=== PATIENT | male | born 1960 | race Caucasian/White ===

== ENCOUNTER 2020-11-18 00:08 | Emergency (ER) | payer SELFPAY ==
[~2020-11-18] VITALS: Ht 180.3 cm; Wt 129.3 kg
[~2020-11-18 00:08] MED LIST: ASPI-1155 PO; LISI20TA30
[2020-11-18 00:12] VITALS: BP_SYST 132
--- NOTE | 2020-11-18 00:12 | NUR ---
PT TO BED 1, GOWNED AND ATTACHED TO INTERMEDIATE ACCOUNTANT.
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
--- NOTE | 2020-11-18 00:30 | NUR ---
DR. FOLEY AT BEDSIDE TO ASSESS.
--- NOTE | 2020-11-18 00:40 | NUR ---
Patient is hard stick vein, dehydrated, IV cannula tried to insert [address] Bill ordered to give Morphine 4mg IV once IM and Ativan 1mg IM once, carried out.
[2020-11-18] MEDS ORDERED: LORazepam 2 MG/ML VIAL ONE (00:41)
[2020-11-18] MEDS ORDERED: MORPHINE 4 MG INJ. 4 MG/ML VIAL ONE (00:42)
[2020-11-18] MEDS ORDERED: ONDANSETRON HCL 4 MG/2 ML VIAL ONE (00:54)
--- NOTE | 2020-11-18 00:55 | NUR ---
# 20 gauge angiocath placed to right wrist. Use of asceptic technique. Opsite placed over site. Blood return noted. Flushed with 10 cc of normal saline. No evidence of infiltration noted. Patient tolerated well.
[2020-11-18] MEDS ORDERED: MORPHINE 2 MG/ML INJ. SYRINGE ONE (00:58)
[2020-11-18] MEDS ORDERED: MORPHINE 4 MG INJ. 4 MG/ML VIAL IM ONE (01:00)
[2020-11-18] MEDS ORDERED: MORPHINE 2 MG/ML INJ. SYRINGE IVP ONE (01:00)
[2020-11-18] MEDS ORDERED: NACL 0.9% 1,000 ML IV ONE ×2 (01:00→06:30)
[2020-11-18] MEDS ORDERED: LORazepam 2 MG/ML VIAL IM ONE (01:00)
[2020-11-18] MEDS ORDERED: ONDANSETRON HCL 4 MG/2 ML VIAL IVP ONE (01:15)
[2020-11-18] MEDS ORDERED: LORazepam 2 MG/ML VIAL IVP ONE (01:15)
[2020-11-18] MEDS ORDERED: KETOROLAC TROMETHAMINE 30 MG VIAL IVP ONE (01:15)
[2020-11-18 01:18] LABS: BASOPHILS % (AUTO) 0.5 % (0.0-2.0); EOSINOPHILS # (AUTO) 0.1 K/uL (0.0-0.4); EOSINOPHILS % (AUTO) 1.2 % (0.0-4.0); HEMATOCRIT 47.1 % (36-54); HEMOGLOBIN 16.3 g/dL (14.0-18.0); LYMPHOCYTES % (AUTO) 11.3 % (20.5-51.5); MEAN CORPUSCULAR HEMOGLOBIN 34 pg (27-31); MEAN CORPUSCULAR HGB CONC 35 % (32-36); MEAN CORPUSCULAR VOLUME 97 fL (79.0-98.0); MONOCYTES # (AUTO) 0.6 K/uL (0.0-1.0); MONOCYTES % (AUTO) 6.8 % (1.7-9.3); NEUTROPHILS # (AUTO) 6.9 K/uL (1.8-7.7); NEUTROPHILS % (AUTO) 80.2 % (40.0-70.0); PLATELET COUNT (AUTO) 319 K/uL (130-430); RED BLOOD CELL COUNT(AUTO) 4.84 MIL/uL (4.2-6.2); RED CELL DISTRIBUTION WIDTH 13.1 % (9.0-15.0); WHITE BLOOD COUNT (AUTO) 8.6 K/uL (4.8-10.8)
[2020-11-18 01:28] LABS: CALCIUM 9.3 mg/dL (8.4-11.0); CREATININE 1.27 mg/dL (0.55-1.30); POTASSIUM 4.3 mmol/L (3.5-5.1)
[2020-11-18 01:34] LABS: TOTAL BILIRUBIN 0.8 mg/dL (0.0-1.0)
--- NOTE | 2020-11-18 02:50 | NUR ---
Apparently nauseated and vomiting noted, Dr. Bill made aware, orders carried out
[2020-11-18] MEDS ORDERED: PANTOPRAZOLE SODIUM 40 MG/VIAL (PROTONIX) IVP ONE (03:00)
[2020-11-18] MEDS ORDERED: METOCLOPRAMIDE HCL 10 MG/2 ML VIAL IVP ONE (03:00)
[2020-11-18] MEDS ORDERED: METOCLOPRAMIDE HCL 10 MG/2 ML VIAL ONE (03:06)
[2020-11-18] MEDS ORDERED: PANTOPRAZOLE SODIUM 40 MG/VIAL (PROTONIX) ONE (03:06)
--- NOTE | 2020-11-18 03:10 | NUR ---
Re-assesed by Dr. Bill,
[2020-11-18] MEDS ORDERED: NACL 0.9% 500 ML IV ONE (03:30)
[2020-11-18] MEDS ORDERED: PRED20TA PO (04:18)
[2020-11-18] MEDS ORDERED: CYCL10TA24 PO (04:18)
[2020-11-18] MEDS ORDERED: ACET1TAB23 PO (04:18)
--- NOTE | 2020-11-18 04:23 | NUR ---
For discharge, apparently patient claimed that no family or friend to pick him up until 6am, refused to take a taxi.
[2020-11-18] MEDS ORDERED: PROCHLORPERAZINE EDISYLATE 10 MG/2 ML VIAL ONE (05:24)
--- NOTE | 2020-11-18 05:25 | NUR ---
Apparently nauseated, Compazine 5mg IV stat as ordered given, health teaching provided and verbalized understanding
[2020-11-18] MEDS ORDERED: PROCHLORPERAZINE EDISYLATE 10 MG/2 ML VIAL IVP ONE (05:30)
--- NOTE | 2020-11-18 06:11 | NUR ---
Refused to discharge, according to him he wasn't able to urinate since 9am yesterday, Dr. Bourgeois made aware, ordered to give Iv fluid
--- NOTE | 2020-11-18 07:10 | NUR ---
Endorsed to day shift AMAIRANI Juan in stable condition for continuity of care.
--- NOTE | 2020-11-18 07:12 | NUR ---
report received from Dhiraj BALES. [facility]
--- NOTE | 2020-11-18 07:15 | NUR ---
ua collected and sent to the lab
[2020-11-18 07:43] LABS: BILIRUBIN,URINE NEGATIVE (NEGATIVE); BLOOD, URINE NEGATIVE (NEGATIVE); COLOR,URINE YELLOW (YELLOW); GLUCOSE,URINE NEGATIVE (NEGATIVE); KETONES,URINE 2+ (NEGATIVE); LEUKOCYTE ESTERASE ,URINE NEGATIVE (NEGATIVE); NITRITE, URINE NEGATIVE (NEGATIVE); PH,URINE 5.5 (5.0-8.0); PROTEIN URINE NEGATIVE (NEGATIVE); UROBILINOGEN,URINE 0.2 (0.2-1.0)
[2020-11-18 07:53] LABS: CLARITY/URINE HAZY (CLEAR)
[2020-11-18 07:58] LABS: BACTERIA,URINE RARE /HPF (None Seen); RBC,URINE NONE SEEN /HPF (0-3); URINE AMORPHOUS URATE 2+ /HPF (None Seen); WBC,URINE 0-3 /HPF (0-3)
[2020-11-18 09:04] VITALS: BP_SYST 95
--- NOTE | 2020-11-18 09:05 | NUR ---
Patient given written and verbal discharge instructions and verbalizes understanding. ER MD discussed with patient the results and treatment provided. Patient in stable condition. ID arm band removed. IV catheter removed intact and dressing applied, no active bleeding. Rx of tylenol 3, flexeril, and prednisone given. Patient educated on pain management and to follow up with PMD. Pain Scale 0/10. Opportunity for questions provided and answered. Medication side effect fact sheet provided.
== END 2020-11-18 09:05 | disposition home or self-care (01) ==
LOC: SED 00:08
DX: T67.5XXA Heat exhaustion, unspecified, initial encounter (principal); R07.89 Other chest pain; E86.0 Dehydration; I10 Essential (primary) hypertension; Z79.899 Other long term (current) drug therapy; X30.XXXA Exposure to excessive natural heat, initial encounter; Y93.89 Activity, other specified; Y92.89 Other specified places as the place of occurrence of the external cause; Y99.8 Other external cause status
CPT/HCPCS: 36415; 71045; 80053; 81000; 83690; 83880; 84484; 85025; 93005; 96361; 96372; 96374; 96375; 99285; C9113; J0780; J1885; J2060; J2270 ×2; J2405; J2765; J7030

== ENCOUNTER 2021-07-03 20:23 | Emergency (ER) | payer MEDICAID ==
[~2021-07-03] VITALS: Ht 177.8 cm; Wt 142.9 kg
[~2021-07-03 20:23] MED LIST changes: +CYCL10TA24 PO; +PRED20TA PO
[2021-07-03 20:34] VITALS: BP_SYST 118
--- NOTE | 2021-07-03 20:49 | NUR ---
Patient to ER bed 2 to gown for evaluation. Side rails up. Report given to RACHELLE BALES
--- NOTE | 2021-07-03 21:00 | NUR ---
Patient is awake and alert. C/O LEFT PINKY LAC, BLEEDING CONTROLLED WHILE WORKING WITH STEEL PIPE. PAIN 7/10. NO OTHER COMPLAINTS AT THIS TIME. AT BEDSIDE. VSS. WILL CONTINUE TO MONITOR.
--- NOTE | 2021-07-03 21:05 | NUR ---
ER MD GUTIÉRREZ AT BEDSIDE EXAMINING PATIENT.
--- NOTE | 2021-07-03 22:10 | NUR ---
ER MD CAPELLAN AT BEDSIDE EXAMINING PATIENT.
[2021-07-03] MEDS: DIPH-TET-PERTUS Vaccine 0.5 ML VIAL (ADACEL) I.M. ONE (22:54)
--- NOTE | 2021-07-03 23:30 | NUR ---
Patient waiting for MD to suture laceration. VSS. Will continue to monitor.
[2021-07-04] MEDS: LIDOCAINE 1% 10 MG/ML, 20 ML MDV INJ ONE (00:23)
[2021-07-04 00:59] VITALS: BP_SYST 125
--- NOTE | 2021-07-04 00:59 | NUR ---
Patient given written and verbal discharge instructions and verbalizes understanding. ER MD CAPELLAN discussed with patient the results and treatment provided. Patient in stable condition. ID arm band removed. Patient educated on pain management and to follow up with PMD. Pain Scale 0/10. Opportunity for questions provided and answered. Medication side effect fact sheet provided.
== END 2021-07-04 00:59 | disposition home or self-care (01) ==
LOC: SED 20:23
DX: S61.317A Laceration without foreign body of left little finger with damage to nail, initial encounter (principal); I10 Essential (primary) hypertension; W27.8XXA Contact with other nonpowered hand tool, initial encounter; Y93.89 Activity, other specified; Y92.89 Other specified places as the place of occurrence of the external cause; Y99.8 Other external cause status
CPT/HCPCS: 12001; 90471; 90715; 99283; J2001

== ENCOUNTER → 2021-12-07 | Emergency (ER) | payer MEDICAID ==
[~2021-12-07] VITALS: Ht 175.3 cm; Wt 145.1 kg
[~2021-12-07] MED LIST changes: +DICYCLOMINE HCL 10 MG/5 ML SOLUTION ONE; +DIPHENHYDRAMINE INJ 50 MG/ML VIAL IVP ONE; +MAG HYDROX/AL HYDROX/SIMETH 30 ML, DICYCLOMINE HCL 20 MG, LIDOCAINE VISCOUS 2% 15ML (PO... PO ONE; +MAG-AL HYDROX/SIMETH 30 ML UDC ONE; +MORPHINE SULFATE 10 MG/ML VIAL IVP ONE; +PROCHLORPERAZINE EDISYLATE 10 MG/2 ML VIAL IVP ONE; +iohexoL 350 mgI/mL, 100 ML INFUS..BTL IV ONE
[2021-12-07 11:00] VITALS: BP_SYST 165
[2021-12-07 11:42] LABS: HEMATOCRIT 45.3 % (36-54); MEAN CORPUSCULAR VOLUME 94 fL (79.0-98.0); PLATELET COUNT (AUTO) 279 K/uL (130-430); RED BLOOD CELL COUNT(AUTO) 4.81 MIL/uL (4.2-6.2); RED CELL DISTRIBUTION WIDTH 13.3 % (9.0-15.0); WHITE BLOOD COUNT (AUTO) 6.9 K/uL (4.8-10.8)
--- NOTE | 2021-12-07 11:45 | NUR ---
RECEIVED PT FROM AMAIRANI ABDULLAHI. PT IS AAOX4. BIBS WITH C/O BACK PAIN. ON R/A. STATES HE HAS NAUSEA. ABDOMEN ROUND, NONTENDER, MILD DISTENTION. DENIES DIARHEA AND CONSTIPATION. IV CATH STARTED TO LFA 20. SKIN WARM, DISTAL PULSES NORMAL. SIDERAILS UP X2.
--- NOTE | 2021-12-07 11:50 | NUR ---
GI COCKTAIL GIVEN. ASPITRATIONS PRECAUTIONS.
--- NOTE | 2021-12-07 12:00 | NUR ---
DR. LOPEZ AT BEDSIDE.
[2021-12-07 12:20] LABS: ANION GAP 11 (5-15); CHLORIDE 101 mmol/L (98-107); CREATININE 1.19 mg/dL (0.55-1.30); GLUCOSE 182 mg/dL (70-99); POTASSIUM 4.1 mmol/L (3.5-5.1); UREA NITROGEN, BLOOD 14 mg/dL (8-21)
[2021-12-07 12:28] LABS: ALANINE AMINOTRANSFERASE 43 U/L (12-78); ALBUMIN 3.6 g/dL (3.4-4.8); ASPARTATE AMINOTRANSFERASE 22 U/L (10-37); TOTAL BILIRUBIN 0.4 mg/dL (0.0-1.0)
--- NOTE | 2021-12-07 12:52 | NUR ---
CXR, URINE, CT CONTRAST CONSENT GIVEN. PT MEDICATED TO PREVENT REACTION TO CONTRAST.
[2021-12-07 12:58] LABS: ALCOHOL, BLOOD < 3 mg/dL (<10); GFR AFRICAN AMERICAN 80 mL/min (>90)
[2021-12-07 13:32] LABS: BARBITURATE, URINE NEGATIVE (NEG <=200); BENZODIAZEPINE, URINE NEGATIVE (NEG <=150); CANNABINOID, URINE POSITIVE (NEG <=50); COCAINE, URINE NEGATIVE (NEG <=150); METHAMPHETAMINES SCREEN,URINE NEGATIVE (NEG <=500); OPIATE, URINE POSITIVE (NEG <=100); PHENCYCLIDINE SCREEN,URINE NEGATIVE (NEG <=25); UR TRICYCLIC ANTIDEPRESSANTS NEGATIVE (NEG <=300); URINE AMPHETAMINE NEGATIVE (NEG <=500); URINE METHADONE NEGATIVE (NEG <=200); URINE OXYCODONE SCREEN NEGATIVE (NEG <=100); URINE PROPOXYPHENE SCREEN NEGATIVE (NEG <=300)
[2021-12-07 15:27] VITALS: BP_SYST 149
[2021-12-07 17:01] LABS: MEAN CORPUSCULAR HEMOGLOBIN 34 pg (27-31); MEAN CORPUSCULAR HGB CONC 35 % (32-36)
== END | disposition home or self-care (01) ==
LOC: SED 11:00
DX: M51.36 Other intervertebral disc degeneration, lumbar region (principal); R07.89 Other chest pain; E78.00 Pure hypercholesterolemia, unspecified; I10 Essential (primary) hypertension; Z79.899 Other long term (current) drug therapy
CPT/HCPCS: 99285; 71275; 96374; 71045; 96375; 80307; 80053; 83880; 85014; 85379; 85049; 84484; 85048; 36415; 93005; 74175; 83051; 72191; 76376; G0482; Q9967; J1200; J0780; J2270

== ENCOUNTER 2022-08-04 09:08 | Emergency (ER) | payer MEDICAID ==
[~2022-08-04] VITALS: Ht 177.8 cm; Wt 154.2 kg
[~2022-08-04 09:08] MED LIST changes: -DICYCLOMINE HCL 10 MG/5 ML SOLUTION ONE; -DIPHENHYDRAMINE INJ 50 MG/ML VIAL IVP ONE; -MAG HYDROX/AL HYDROX/SIMETH 30 ML, DICYCLOMINE HCL 20 MG, LIDOCAINE VISCOUS 2% 15ML (PO... PO ONE; -MAG-AL HYDROX/SIMETH 30 ML UDC ONE; -MORPHINE SULFATE 10 MG/ML VIAL IVP ONE; -PROCHLORPERAZINE EDISYLATE 10 MG/2 ML VIAL IVP ONE; -iohexoL 350 mgI/mL, 100 ML INFUS..BTL IV ONE
[2022-08-04 09:15] VITALS: BP_SYST 169
[2022-08-04] MEDS ORDERED: HYDROcodone/ACETAMIN 5-325 MG TAB (NORCO/ VICODIN) PO ONE (09:30)
[2022-08-04] MEDS ORDERED: TETRACAINE HCL/PF 0.5% OPHTHALMIC DROPS 4 ML OP ONE (09:30)
[2022-08-04] MEDS ORDERED: ED NON STOCK ORDER 1 EA MISC PO ONE (10:45)
[2022-08-04] MEDS ORDERED: ERYEYE RIGHT EYE (10:58)
[2022-08-04] MEDS ORDERED: HYDR-3917 PO (10:58)
[2022-08-04] MEDS ORDERED: ONDA-8 TL (10:58)
[2022-08-04 15:09] VITALS: BP_SYST 135
== END 2022-08-04 11:00 | disposition home or self-care (01) ==
LOC: SED 09:08
DX: H57.11 Ocular pain, right eye (principal); I10 Essential (primary) hypertension; Z79.899 Other long term (current) drug therapy
CPT/HCPCS: 70450-TC; 70480; 76376; 99284

== ENCOUNTER 2022-09-15 14:17 | Emergency (ER) | payer MEDICAID ==
[~2022-09-15] VITALS: Ht 180.3 cm; Wt 136.1 kg
[~2022-09-15 14:17] MED LIST changes: +ERYEYE RIGHT EYE; +FLUORESCEIN SODIUM 1 MG OPHTHALMIC STRIP OP ONE; +HYDR-3917 PO; +ONDA-8 TL; +PROPARACAINE (OPTHANINE 0.5%) 15 ML DROPS OP ONE
[2022-09-15 15:26] VITALS: BP_SYST 132; PULSE 97; RESP 16; TEMP 98.2; O2SAT 97
[2022-09-15] MEDS ORDERED: TRAM50TA2 PO (16:37)
[2022-09-15] MEDS ORDERED: FLOEARD EACH EYE (16:37)
[2022-09-15 17:00] VITALS: BP_SYST 126; PULSE 86; RESP 17; TEMP 98.2; O2SAT 98
== END 2022-09-15 17:00 | disposition home or self-care (01) ==
LOC: SED 14:17
DX: S05.01XA Injury of conjunctiva and corneal abrasion without foreign body, right eye, initial encounter (principal); I10 Essential (primary) hypertension; Z79.899 Other long term (current) drug therapy; X58.XXXA Exposure to other specified factors, initial encounter; Y93.89 Activity, other specified; Y92.89 Other specified places as the place of occurrence of the external cause; Y99.8 Other external cause status
CPT/HCPCS: 99283

== ENCOUNTER 2022-12-01 13:30 | Emergency (ER) | payer SELFPAY ==
[~2022-12-01] VITALS: Ht 180.3 cm; Wt 144.2 kg
[~2022-12-01 13:30] MED LIST changes: +FLOEARD EACH EYE; -FLUORESCEIN SODIUM 1 MG OPHTHALMIC STRIP OP ONE; -PROPARACAINE (OPTHANINE 0.5%) 15 ML DROPS OP ONE; +TRAM50TA2 PO
[2022-12-01 13:37] VITALS: BP_SYST 107; PULSE 105; RESP 18; TEMP 98.3; O2SAT 96
[2022-12-01] MEDS ORDERED: KETOROLAC TROMETHAMINE 60 MG/2 ML VIAL IM ONE (15:15)
[2022-12-01] MEDS ORDERED: HYDR-3917 PO (15:31)
[2022-12-01] MEDS ORDERED: PRED20TA PO (15:31)
[2022-12-01 15:32] VITALS: BP_SYST 115; PULSE 99; RESP 19; TEMP 98; O2SAT 97
== END 2022-12-01 15:46 | disposition home or self-care (01) ==
LOC: SED 13:30
DX: S83.92XA Sprain of unspecified site of left knee, initial encounter (principal); I10 Essential (primary) hypertension; Z79.899 Other long term (current) drug therapy; X50.9XXA Other and unspecified overexertion or strenuous movements or postures, initial encounter; Y93.89 Activity, other specified; Y92.89 Other specified places as the place of occurrence of the external cause; Y99.8 Other external cause status
CPT/HCPCS: 99283; 29505; 73564; 96372; J1885

== ENCOUNTER 2023-03-06 19:36 | Inpatient (IN) | payer BC ==
[~2023-03-06] VITALS: Ht 177.8 cm; Wt 148.8 kg
[2023-03-06 20:30] VITALS: PULSE 72; RESP 18; TEMP 98.3; O2SAT 96
[2023-03-06] MEDS ORDERED: ASPIRIN 81 MG TAB.CHEW PO ONE (20:45)
[2023-03-06] MEDS ORDERED: ASPIRIN 81 MG TABLET(ECOTRIN) PO ONE (21:15)
[2023-03-06 21:38] LABS: BASOPHILS % (AUTO) 0.6 % (0.0-2.0); EOSINOPHILS # (AUTO) 0.5 K/uL (0.0-0.4); EOSINOPHILS % (AUTO) 7.4 % (0.0-4.0); HEMATOCRIT 45.6 % (36-54); HEMOGLOBIN 15.9 g/dL (14.0-18.0); LYMPHOCYTES # (AUTO) 2.2 K/uL (1.0-5.5); MEAN CORPUSCULAR HEMOGLOBIN 33 pg (27-31); MEAN CORPUSCULAR HGB CONC 35 % (32-36); MEAN CORPUSCULAR VOLUME 96 fL (79.0-98.0); MONOCYTES # (AUTO) 0.8 K/uL (0.0-1.0); MONOCYTES % (AUTO) 11.2 % (1.7-9.3); NEUTROPHILS # (AUTO) 3.7 K/uL (1.8-7.7); NEUTROPHILS % (AUTO) 50.8 % (40.0-70.0); PLATELET COUNT (AUTO) 275 K/uL (130-430); RED BLOOD CELL COUNT(AUTO) 4.78 MIL/uL (4.2-6.2); RED CELL DISTRIBUTION WIDTH 13.1 % (9.0-15.0); WHITE BLOOD COUNT (AUTO) 7.3 K/uL (4.8-10.8)
[2023-03-06 21:46] LABS: ANION GAP 10 (5-15); CARBON DIOXIDE 25 mmol/L (23-29); CHLORIDE 100 mmol/L (98-107); CREATININE 0.93 mg/dL (0.55-1.30); GFR AFRICAN AMERICAN 106 mL/min (>90); GLUCOSE 191 mg/dL (74-106); POTASSIUM 4.2 mmol/L (3.5-5.1); SODIUM SERUM 135 mmol/L (136-145); UREA NITROGEN, BLOOD 14 mg/dL (8-21)
[2023-03-06 21:48] LABS: GFR NON AFRICAN-AMERICAN 88 mL/min (>90)
[2023-03-06] MEDS ORDERED: MORPHINE 4 MG INJ. 4 MG/ML VIAL IVP ONE (22:30)
[2023-03-06] MEDS ORDERED: ONDANSETRON HCL 4 MG/2 ML VIAL IVP ONE (22:30)
[2023-03-07] MEDS ORDERED: AMLO2.5T2 PO (00:43)
[2023-03-07] MEDS ORDERED: LORA10TA7 PO (00:43)
[2023-03-07] MEDS ORDERED: LEVO75TA7 PO (00:43)
[2023-03-07] MEDS ORDERED: LIP10 PO (00:43)
[2023-03-07] MEDS ORDERED: MORPHINE 4 MG INJ. 4 MG/ML VIAL IVP ONE (02:15)
[2023-03-07] MEDS ORDERED: ONDANSETRON HCL 4 MG/2 ML VIAL IVP PRN (09:45)
[2023-03-07] MEDS ORDERED: NALOXONE HCL 0.4 MG/ML AMP (NARCAN) IVP PRN ×2 (09:45)
[2023-03-07] MEDS ORDERED: ACETAMINOPHEN 325 MG TABLET PO PRN ×2 (09:45→10:15)
[2023-03-07] MEDS ORDERED: HYDROcodone/ACETAMIN 5-325 MG TAB (NORCO/ VICODIN) PO PRN (09:45)
[2023-03-07] MEDS ORDERED: LORazepam 2 MG/ML VIAL IVP PRN (09:45)
[2023-03-07 10:12] LABS: BASOPHILS % (AUTO) 0.6 % (0.0-2.0); EOSINOPHILS # (AUTO) 0.6 K/uL (0.0-0.4); EOSINOPHILS % (AUTO) 9.5 % (0.0-4.0); HEMATOCRIT 43.3 % (36-54); HEMOGLOBIN 15.3 g/dL (14.0-18.0); LYMPHOCYTES # (AUTO) 1.4 K/uL (1.0-5.5); LYMPHOCYTES % (AUTO) 24.3 % (20.5-51.5); MEAN CORPUSCULAR HEMOGLOBIN 34 pg (27-31); MEAN CORPUSCULAR HGB CONC 35 % (32-36); MEAN CORPUSCULAR VOLUME 96 fL (79.0-98.0); MONOCYTES # (AUTO) 0.5 K/uL (0.0-1.0); MONOCYTES % (AUTO) 8.7 % (1.7-9.3); NEUTROPHILS # (AUTO) 3.4 K/uL (1.8-7.7); NEUTROPHILS % (AUTO) 56.9 % (40.0-70.0); PLATELET COUNT (AUTO) 254 K/uL (130-430); RED BLOOD CELL COUNT(AUTO) 4.53 MIL/uL (4.2-6.2); RED CELL DISTRIBUTION WIDTH 13.2 % (9.0-15.0); WHITE BLOOD COUNT (AUTO) 5.9 K/uL (4.8-10.8)
[2023-03-07] MEDS ORDERED: LORATADINE 10 MG TABLET PO ONE (10:15)
[2023-03-07] MEDS ORDERED: amLODIPine BESYLATE 5 MG TABLET PO ONE (10:15)
[2023-03-07] MEDS ORDERED: ASPIRIN 81 MG TAB.CHEW PO ONE (10:15)
[2023-03-07] MEDS ORDERED: LEVOTHYROXINE SODIUM 0.075 MG TABLET PO ONE (10:15)
[2023-03-07 10:38] LABS: CALCIUM 8.8 mg/dL (8.4-11.0); CREATININE 0.96 mg/dL (0.55-1.30); PHOSPHORUS 3.4 mg/dL (2.7-4.5); THYROID STIMULATING HORMONE 9.75 uIu/mL (0.34-4.82)
[2023-03-07] MEDS ORDERED: ONDANSETRON HCL 4 MG/2 ML VIAL IVP ONE (12:15)
[2023-03-07] MEDS ORDERED: iohexoL 350 mgI/mL, 100 ML INFUS..BTL IV ONE (13:11)
[2023-03-07] MEDS: HYDROcodone/ACETAMIN 5-325 MG TAB (NORCO/ VICODIN) PO PRN ×2 (13:28→20:38)
[2023-03-07] MEDS: NORMAL SALINE 5 ML DISP.SYRIN IVF SCH (14:00)
[2023-03-07] MEDS: CYCLOBENZAPRINE HCL 10 MG TABLET (FLEXERIL) PO SCH ×2 (15:00→21:18)
[2023-03-07] MEDS ORDERED: HYDROcodone/ACETAMIN 5-325 MG TAB (NORCO/ VICODIN) ONE (16:23)
[2023-03-07 16:41] VITALS: BP_SYST 135; PULSE 84; RESP 18; TEMP 97.4
[2023-03-07 20:45] VITALS: O2SAT 94
[2023-03-07] MEDS: ATORVASTATIN 10 MG TABLET PO SCH (21:18)
[2023-03-07] MEDS: lisinopriL 20 MG TABLET PO SCH (21:21)
[2023-03-08 02:14] VITALS: BP_SYST 124; PULSE 74; RESP 20; O2SAT 91
[2023-03-08] MEDS: NORMAL SALINE 5 ML DISP.SYRIN IVF SCH ×3 (06:52→20:06)
[2023-03-08] MEDS: LEVOTHYROXINE SODIUM 0.075 MG TABLET PO SCH (06:52)
[2023-03-08] MEDS: HYDROcodone/ACETAMIN 5-325 MG TAB (NORCO/ VICODIN) PO PRN (06:53)
[2023-03-08 07:46] LABS: BASOPHILS % (AUTO) 0.5 % (0.0-2.0); EOSINOPHILS # (AUTO) 0.6 K/uL (0.0-0.4); EOSINOPHILS % (AUTO) 9.2 % (0.0-4.0); HEMATOCRIT 45.1 % (36-54); HEMOGLOBIN 15.8 g/dL (14.0-18.0); LYMPHOCYTES # (AUTO) 1.3 K/uL (1.0-5.5); LYMPHOCYTES % (AUTO) 20.7 % (20.5-51.5); MEAN CORPUSCULAR HEMOGLOBIN 33 pg (27-31); MEAN CORPUSCULAR HGB CONC 35 % (32-36); MEAN CORPUSCULAR VOLUME 95 fL (79.0-98.0); MONOCYTES # (AUTO) 0.6 K/uL (0.0-1.0); MONOCYTES % (AUTO) 9.9 % (1.7-9.3); NEUTROPHILS # (AUTO) 3.7 K/uL (1.8-7.7); NEUTROPHILS % (AUTO) 59.7 % (40.0-70.0); PLATELET COUNT (AUTO) 263 K/uL (130-430); RED BLOOD CELL COUNT(AUTO) 4.73 MIL/uL (4.2-6.2); WHITE BLOOD COUNT (AUTO) 6.2 K/uL (4.8-10.8)
[2023-03-08 08:00] VITALS: O2SAT 95
[2023-03-08 08:07] LABS: CALCIUM 8.8 mg/dL (8.4-11.0); CREATININE 0.85 mg/dL (0.55-1.30); POTASSIUM 4.1 mmol/L (3.5-5.1)
[2023-03-08 08:10] VITALS: BP_SYST 127; PULSE 79; RESP 19; TEMP 98.6; O2SAT 94
[2023-03-08] MEDS ORDERED: amLODIPine BESYLATE 5 MG TABLET PO SCH (09:00)
[2023-03-08] MEDS ORDERED: iohexoL 350 mgI/mL, 100 ML INFUS..BTL IV ONE (09:50)
[2023-03-08] MEDS: ASPIRIN 81 MG TAB.CHEW PO SCH (11:20)
[2023-03-08] MEDS: CYCLOBENZAPRINE HCL 10 MG TABLET (FLEXERIL) PO SCH ×3 (11:20→20:06)
[2023-03-08] MEDS: LORATADINE 10 MG TABLET PO SCH (11:21)
[2023-03-08] MEDS ORDERED: NALOXONE HCL 0.4 MG/ML AMP (NARCAN) IVP PRN (11:30)
[2023-03-08 12:49] VITALS: BP_SYST 132; PULSE 79; RESP 18; TEMP 98.4; O2SAT 93
[2023-03-08] MEDS: MORPHINE 2 MG/ML INJ. SYRINGE IVP PRN ×2 (15:00→20:05)
[2023-03-08 16:55] VITALS: BP_SYST 140; PULSE 80; RESP 18; TEMP 98; O2SAT 94
[2023-03-08 20:00] VITALS: BP_SYST 116; PULSE 89; RESP 18; TEMP 97.8; O2SAT 93
[2023-03-08] MEDS: lisinopriL 20 MG TABLET PO SCH (20:06)
[2023-03-08] MEDS: ATORVASTATIN 10 MG TABLET PO SCH (20:06)
[2023-03-09] VITALS: BP_SYST 122; PULSE 89; RESP 18; TEMP 97.6; O2SAT 94
[2023-03-09] MEDS: MORPHINE 2 MG/ML INJ. SYRINGE IVP PRN ×6 (00:12→22:43)
[2023-03-09 02:26] VITALS: BP_SYST 160; PULSE 91; RESP 19; TEMP 98.4; O2SAT 94
[2023-03-09] MEDS: LEVOTHYROXINE SODIUM 0.075 MG TABLET PO SCH (06:10)
[2023-03-09] MEDS: NORMAL SALINE 5 ML DISP.SYRIN IVF SCH ×3 (06:10→20:33)
[2023-03-09 08:04] VITALS: BP_SYST 124; PULSE 64; RESP 18; TEMP 98.3; O2SAT 92
[2023-03-09] MEDS: ASPIRIN 81 MG TAB.CHEW PO SCH (09:15)
[2023-03-09] MEDS: CARVEDILOL 12.5 MG TABLET (COREG) PO SCH ×2 (09:16→20:32)
[2023-03-09] MEDS: LORATADINE 10 MG TABLET PO SCH (09:16)
[2023-03-09] MEDS: CYCLOBENZAPRINE HCL 10 MG TABLET (FLEXERIL) PO SCH ×3 (09:16→20:33)
[2023-03-09] MEDS: SACUBITRIL/VALSARTAN 24 MG-26 MG 1 TABLET PO SCH ×2 (09:18→20:32)
[2023-03-09 09:44] LABS: BASOPHILS % (AUTO) 0.4 % (0.0-2.0); EOSINOPHILS # (AUTO) 0.6 K/uL (0.0-0.4); EOSINOPHILS % (AUTO) 8.4 % (0.0-4.0); HEMATOCRIT 48.3 % (36-54); HEMOGLOBIN 16.5 g/dL (14.0-18.0); LYMPHOCYTES # (AUTO) 1.4 K/uL (1.0-5.5); LYMPHOCYTES % (AUTO) 20.5 % (20.5-51.5); MEAN CORPUSCULAR HEMOGLOBIN 33 pg (27-31); MEAN CORPUSCULAR HGB CONC 34 % (32-36); MEAN CORPUSCULAR VOLUME 96 fL (79.0-98.0); MONOCYTES # (AUTO) 0.7 K/uL (0.0-1.0); NEUTROPHILS # (AUTO) 4.1 K/uL (1.8-7.7); NEUTROPHILS % (AUTO) 59.7 % (40.0-70.0); PLATELET COUNT (AUTO) 273 K/uL (130-430); RED BLOOD CELL COUNT(AUTO) 5.04 MIL/uL (4.2-6.2); RED CELL DISTRIBUTION WIDTH 13.1 % (9.0-15.0); WHITE BLOOD COUNT (AUTO) 6.8 K/uL (4.8-10.8)
[2023-03-09 10:11] LABS: ALBUMIN 3.5 g/dL (3.4-4.8); CALCIUM 9.6 mg/dL (8.4-11.0); CREATININE 0.95 mg/dL (0.55-1.30); POTASSIUM 4.1 mmol/L (3.5-5.1); TOTAL BILIRUBIN 0.6 mg/dL (0.0-1.0); TOTAL PROTEIN, SERUM 7.3 g/dL (6.4-8.3)
[2023-03-09 11:46] VITALS: BP_SYST 118; PULSE 89; RESP 17; TEMP 98.4; O2SAT 95
[2023-03-09 17:27] VITALS: BP_SYST 125; PULSE 81; RESP 18; TEMP 98; O2SAT 95
[2023-03-09 20:00] VITALS: BP_SYST 115; PULSE 105; RESP 18; TEMP 97.2; O2SAT 94
[2023-03-09] MEDS: ATORVASTATIN 10 MG TABLET PO SCH (20:32)
[2023-03-10] VITALS: BP_SYST 108; PULSE 91; RESP 18; TEMP 97.4; O2SAT 94
[2023-03-10] MEDS: MORPHINE 2 MG/ML INJ. SYRINGE IVP PRN ×5 (02:47→23:37)
[2023-03-10] MEDS: LEVOTHYROXINE SODIUM 0.075 MG TABLET PO SCH (06:36)
[2023-03-10 08:15] VITALS: BP_SYST 101; PULSE 84; RESP 16; TEMP 97.9; O2SAT 96
[2023-03-10] MEDS: SACUBITRIL/VALSARTAN 24 MG-26 MG 1 TABLET PO SCH ×2 (09:32→21:55)
[2023-03-10] MEDS: NORMAL SALINE 5 ML DISP.SYRIN IVF SCH ×3 (09:32→21:55)
[2023-03-10] MEDS: ASPIRIN 81 MG TAB.CHEW PO SCH (09:33)
[2023-03-10] MEDS: CARVEDILOL 12.5 MG TABLET (COREG) PO SCH ×2 (09:33→21:56)
[2023-03-10] MEDS: LORATADINE 10 MG TABLET PO SCH (09:34)
[2023-03-10] MEDS: CYCLOBENZAPRINE HCL 10 MG TABLET (FLEXERIL) PO SCH ×3 (09:34→21:56)
[2023-03-10 12:48] VITALS: BP_SYST 113; PULSE 61; RESP 16; TEMP 97; O2SAT 94
[2023-03-10 16:50] VITALS: BP_SYST 119; PULSE 66; RESP 18; TEMP 97.7; O2SAT 94
[2023-03-10 20:00] VITALS: BP_SYST 112; PULSE 86; RESP 16; TEMP 98.4; O2SAT 98
[2023-03-10] MEDS: ATORVASTATIN 10 MG TABLET PO SCH (21:55)
[2023-03-11 02:23] VITALS: BP_SYST 107; PULSE 98; RESP 16; TEMP 98.5; O2SAT 97
[2023-03-11] MEDS: MORPHINE 2 MG/ML INJ. SYRINGE IVP PRN ×4 (04:06→17:24)
[2023-03-11] MEDS: LEVOTHYROXINE SODIUM 0.075 MG TABLET PO SCH (06:25)
[2023-03-11] MEDS: NORMAL SALINE 5 ML DISP.SYRIN IVF SCH ×3 (06:26→21:04)
[2023-03-11 08:00] VITALS: BP_SYST 124; PULSE 95; RESP 20; TEMP 98.8; O2SAT 94
[2023-03-11] MEDS: CARVEDILOL 12.5 MG TABLET (COREG) PO SCH ×2 (08:33→20:45)
[2023-03-11] MEDS: ASPIRIN 81 MG TAB.CHEW PO SCH (08:33)
[2023-03-11] MEDS: CYCLOBENZAPRINE HCL 10 MG TABLET (FLEXERIL) PO SCH ×3 (08:33→20:44)
[2023-03-11] MEDS: LORATADINE 10 MG TABLET PO SCH (08:34)
[2023-03-11] MEDS: SACUBITRIL/VALSARTAN 24 MG-26 MG 1 TABLET PO SCH ×2 (08:37→20:45)
[2023-03-11 12:46] VITALS: BP_SYST 126; PULSE 90; RESP 19; TEMP 98; O2SAT 95
[2023-03-11 16:54] VITALS: BP_SYST 122; PULSE 84; RESP 18; TEMP 98.4; O2SAT 95
[2023-03-11 20:00] VITALS: BP_SYST 118; PULSE 90; RESP 18; TEMP 98; O2SAT 95
[2023-03-11] MEDS: ATORVASTATIN 10 MG TABLET PO SCH (20:43)
[2023-03-11] MEDS: HYDROcodone/ACETAMIN 5-325 MG TAB (NORCO/ VICODIN) PO PRN (21:04)
[2023-03-12] MEDS: HYDROcodone/ACETAMIN 5-325 MG TAB (NORCO/ VICODIN) PO PRN ×3 (05:15→14:46)
[2023-03-12] MEDS: LEVOTHYROXINE SODIUM 0.075 MG TABLET PO SCH (06:09)
[2023-03-12 06:16] VITALS: BP_SYST 98; PULSE 93; RESP 20; TEMP 97; O2SAT 95
[2023-03-12] MEDS: NORMAL SALINE 5 ML DISP.SYRIN IVF SCH ×2 (06:27→14:44)
[2023-03-12 07:55] VITALS: BP_SYST 112; PULSE 94; RESP 20; TEMP 96.9; O2SAT 98
[2023-03-12] MEDS: LORATADINE 10 MG TABLET PO SCH (09:05)
[2023-03-12] MEDS: CARVEDILOL 12.5 MG TABLET (COREG) PO SCH (09:05)
[2023-03-12] MEDS: ASPIRIN 81 MG TAB.CHEW PO SCH (09:05)
[2023-03-12] MEDS: CYCLOBENZAPRINE HCL 10 MG TABLET (FLEXERIL) PO SCH ×2 (09:05→14:43)
[2023-03-12] MEDS: SACUBITRIL/VALSARTAN 24 MG-26 MG 1 TABLET PO SCH (09:07)
[2023-03-12 09:55] VITALS: O2SAT 98
[2023-03-12 12:30] VITALS: BP_SYST 130; PULSE 97; RESP 18; TEMP 97.6; O2SAT 94
[2023-03-12] MEDS ORDERED: SACU1TAB PO (12:52)
[2023-03-12] MEDS ORDERED: COR12.5 PO (12:52)
[2023-03-12 16:33] VITALS: BP_SYST 136; PULSE 85; RESP 18; TEMP 97.4; O2SAT 97
== END 2023-03-12 16:45 | disposition home or self-care (01) | DRG 313 ==
LOC: SED 19:36 → STU 03-07 00:22 → SMU 03-09 10:59
PROVIDERS: ADMIT Preventive Medicine Preventive Medicine/Occupational Environmental Medicine; ATTEND Preventive Medicine Preventive Medicine/Occupational Environmental Medicine
PROC: 05HY33Z Insertion of Infusion Device into Upper Vein, Percutaneous Approach (ICD-10-PCS; principal; 2023-03-07)
PROC: B54NZZA Ultrasonography of Left Upper Extremity Veins, Guidance (ICD-10-PCS; 2023-03-07)
DX: R07.89 Other chest pain (principal); E87.1 Hypo-osmolality and hyponatremia; I42.9 Cardiomyopathy, unspecified; G89.4 Chronic pain syndrome; E78.5 Hyperlipidemia, unspecified; I10 Essential (primary) hypertension; E03.9 Hypothyroidism, unspecified; R73.9 Hyperglycemia, unspecified; G47.33 Obstructive sleep apnea (adult) (pediatric); I44.7 Left bundle-branch block, unspecified; I71.20 Thoracic aortic aneurysm, without rupture, unspecified
CPT/HCPCS: 36415; 71045; 71275; 74175; 76376; 80048; 80053; 80061; 83735; 83880; 84100; 84443; 84484; 85025; 93005; 93306; 96374; 96375; 99285; G0378; J2270; J2405; Q9967

== ENCOUNTER 2023-11-15 23:18 | Inpatient (IN) | payer SELFPAY ==
[~2023-11-15] VITALS: Ht 177.8 cm; Wt 139.7 kg
[~2023-11-15 23:18] MED LIST changes: +AMLO2.5T2 PO; +ATOR-449 PO; +COR12.5 PO; -ERYEYE RIGHT EYE; -FLOEARD EACH EYE; -HYDR-3917 PO; +LEVO75TA7 PO; -LISI20TA30; +LORA10TA7 PO; -ONDA-8 TL; -PRED20TA PO; +SACU1TAB PO; -TRAM50TA2 PO
[2023-11-15 23:25] VITALS: BP_SYST 162; PULSE 106; RESP 12; TEMP 97.4; O2SAT 99
[2023-11-15] MEDS: ASPIRIN 81 MG TAB.CHEW PO ONE (23:30)
--- NOTE | 2023-11-15 23:40 | NUR ---
Received a 63 years old male patient on a wheelchair with RN, from [facility]. Complaining of left Chest pain, radiating to left shoulder to back. PMHx, T2DM, HTN, HLD, OBESITY, CARDIAC DISEASE. Vitals checked. Waiting for MSE
[2023-11-15] MEDS: KETOROLAC TROMETHAMINE 30 MG VIAL IVP ONE (23:55)
[2023-11-15] MEDS: ONDANSETRON HCL 4 MG/2 ML VIAL IVP ONE (23:55)
[2023-11-15 23:58] LABS: BASOPHILS # (AUTO) 0.1 K/uL (0.0-0.2); BASOPHILS % (AUTO) 0.4 % (0.0-2.0); EOSINOPHILS % (AUTO) 0.2 % (0.0-4.0); HEMATOCRIT 49.4 % (36-54); LYMPHOCYTES % (AUTO) 8.4 % (20.5-51.5); MEAN CORPUSCULAR HEMOGLOBIN 34 pg (27-31); MEAN CORPUSCULAR HGB CONC 36 % (32-36); MEAN CORPUSCULAR VOLUME 95 fL (79.0-98.0); MONOCYTES # (AUTO) 0.5 K/uL (0.0-1.0); MONOCYTES % (AUTO) 4.1 % (1.7-9.3); NEUTROPHILS # (AUTO) 10.3 K/uL (1.8-7.7); NEUTROPHILS % (AUTO) 86.9 % (40.0-70.0); PLATELET COUNT (AUTO) 363 K/uL (130-430); WHITE BLOOD COUNT (AUTO) 11.9 K/uL (4.8-10.8)
[2023-11-16 00:02] LABS: HEMOGLOBIN 16.5 g/dL (14.0-18.0)
[2023-11-16 00:03] LABS: RED BLOOD CELL COUNT(AUTO) 4.94 MIL/uL (4.2-6.2)
--- NOTE | 2023-11-16 00:10 | NUR ---
Dr. Drew aware of EKG results
[2023-11-16 00:12] LABS: PROTHROMBIN TIME 10.5 SECS (9.5-12.5)
--- NOTE | 2023-11-16 00:21 | NUR ---
patient reports pain is 10/10 left chest, shoulder, back, kidney. the patient started at 5 pm and increased, did not use pain medications at home. reports feeling nauseated at this time patient is spitting up in the emmesis bag no vomiting.
[2023-11-16 00:28] LABS: ALANINE AMINOTRANSFERASE 34 U/L (12-78); ALBUMIN 4.1 g/dL (3.4-4.8); ANION GAP 11 (5-15); ASPARTATE AMINOTRANSFERASE 20 U/L (10-37); BILIRUBIN,DIRECT 0.2 mg/dL (0.0-0.3); CARBON DIOXIDE 27 mmol/L (23-29); CHLORIDE 101 mmol/L (98-107); CREATININE 1.15 mg/dL (0.55-1.30); GFR AFRICAN AMERICAN 83 mL/min (>90); GLUCOSE 209 mg/dL (74-106); POTASSIUM 4.2 mmol/L (3.5-5.1); SODIUM SERUM 139 mmol/L (136-145); TOTAL BILIRUBIN 0.7 mg/dL (0.0-1.0); TOTAL PROTEIN, SERUM 8.5 g/dL (6.4-8.3); UREA NITROGEN, BLOOD 13 mg/dL (8-21)
[2023-11-16] MEDS: METOCLOPRAMIDE HCL 10 MG/2 ML VIAL IVP ONE (00:29)
[2023-11-16] MEDS: MORPHINE 4 MG INJ. 4 MG/ML VIAL IVP ONE (00:29)
[2023-11-16 00:31] LABS: GFR NON AFRICAN-AMERICAN 69 mL/min (>90)
[2023-11-16] MEDS: NACL 0.9% 1,000 ML IV ONE (00:42)
[2023-11-16] MEDS ORDERED: METO-442 PO (01:52)
[2023-11-16] MEDS ORDERED: LIP40 PO (01:52)
[2023-11-16] MEDS ORDERED: AMLO5TAB4 PO (01:52)
[2023-11-16] MEDS ORDERED: HYDR-3927 PO (01:52)
[2023-11-16] MEDS ORDERED: LOSA100T24 PO (01:52)
[2023-11-16] MEDS ORDERED: CYCL10TA24 PO (01:52)
--- NOTE | 2023-11-16 01:52 | NUR ---
medication reconciliation completed.
[2023-11-16 01:54] LABS: AMYLASE 58 U/L (0-100); LIPASE 35 U/L (16-77)
[2023-11-16] MEDS ORDERED: NEU300 PO (01:56)
[2023-11-16] MEDS: LORazepam 2 MG/ML VIAL IVP ONE ×2 (02:01→21:35)
[2023-11-16] MEDS ORDERED: SEMA0.258 INJ (02:03)
--- NOTE | 2023-11-16 02:03 | NUR ---
reports pain in the chest 6/10, denies sob, o2 sat 95% on room air.
--- NOTE | 2023-11-16 02:15 | NUR ---
Lorazepam 2 mg given as ordered.
[2023-11-16] MEDS ORDERED: cloNIDine HCL 0.1 MG TABLET PO PRN (02:45)
[2023-11-16] MEDS ORDERED: INSULIN REGULAR, HUMAN 100 UNITS/ML, 3 ML VIAL (humuLIN R) SUBCUT PRN (02:45)
--- NOTE | 2023-11-16 02:46 | NUR ---
oxygen at 2 lpm via nc for o2 sat 87 % on room air when sleeping, patient reports he does sleep with a cpap machine for sleep apnea.
--- NOTE | 2023-11-16 02:47 | NUR ---
AAdmit bed requested Patient will be admitted to care of . Admitted to TELE unit. Diagnosis CHEST PAIN Inpatient (Yes or No) YES Observation (Yes or No) NO Orientation concerns or request close to nursing station (Yes or No) NO Covid Status N/A On vent or bipap NO Isolation requirements NO Needs a sitter NO From Home (Yes or if No enter name of facility) YES Requires Dialysis (Yes or No) NO Med Rec Completed (Yes of No) PENDING
[2023-11-16] MEDS: NITROGLYCERIN 0.4 MG TAB.SUBL SL ONE (03:59)
[2023-11-16] MEDS ORDERED: ASPIRIN 81 MG TAB.CHEW ONE (03:59)
--- NOTE | 2023-11-16 04:05 | NUR ---
Asprin 162 mg, Morphine 4 mg, nitrostat 0.4 mg given as ordered, ns bolus as ordered. urine collected delivered as ordered. patient pain reduce to 5/10 upon discharge to telemetry.
--- NOTE | 2023-11-16 04:05 | NUR ---
ADMISSION NOTE: PATIENT ARRIVED TO THE UNIT VIA GURNEY, ABLE TO AMBULATE TO THE BEDSIDE. PLACED ON 2L OF OXYGEN VIA N/C. DENIES PAIN OR DISCOMFORT AT THIS TIME. ORIENTED TO ROOM AND UNIT ROUTINE. BED LOCKED AND IN LOWEST POSITION WITH CALL LIGHT WITHIN REACH.
--- NOTE | 2023-11-16 04:05 | NUR ---
Patient will be admitted to care of Femi Aquino Admitted to Telemetry unit. Will go to room 125 a. Belongings list completed. Complete and up to date summary report printed. SBAR report to be given at bedside with opportunity for questions.Nurse Tiana received report.
[2023-11-16 04:07] VITALS: BP_SYST 125; PULSE 81; RESP 20; TEMP 98.2
[2023-11-16 04:17] LABS: BILIRUBIN,URINE NEGATIVE (NEGATIVE); BLOOD, URINE NEGATIVE (NEGATIVE); COLOR,URINE YELLOW (YELLOW); GLUCOSE,URINE NEGATIVE (NEGATIVE); KETONES,URINE 2+ (NEGATIVE); LEUKOCYTE ESTERASE ,URINE NEGATIVE (NEGATIVE); NITRITE, URINE NEGATIVE (NEGATIVE); PH,URINE 6.5 (5.0-8.0); PROTEIN URINE TRACE (NEGATIVE); UROBILINOGEN,URINE 0.2 (0.2-1.0)
[2023-11-16 04:18] LABS: BARBITURATE, URINE NEGATIVE (NEG <=200); CANNABINOID, URINE POSITIVE (NEG <=50); METHAMPHETAMINES SCREEN,URINE NEGATIVE (NEG <=500); OPIATE, URINE POSITIVE (NEG <=100); URINE AMPHETAMINE NEGATIVE (NEG <=500)
[2023-11-16 04:19] LABS: BENZODIAZEPINE, URINE NEGATIVE (NEG <=150); COCAINE, URINE NEGATIVE (NEG <=150); PHENCYCLIDINE SCREEN,URINE NEGATIVE (NEG <=25); UR TRICYCLIC ANTIDEPRESSANTS NEGATIVE (NEG <=300); URINE METHADONE NEGATIVE (NEG <=200); URINE OXYCODONE SCREEN NEGATIVE (NEG <=100)
[2023-11-16 04:58] LABS: CLARITY/URINE HAZY (CLEAR); RBC,URINE 0-3 /HPF (0-3)
[2023-11-16 04:59] LABS: BACTERIA,URINE None Seen /HPF (None Seen); WBC,URINE 0-3 /HPF (0-3)
--- NOTE | 2023-11-16 05:45 | NUR ---
CONSULTATION PAGED/CALLED Reason for Consultation: CHEST PAIN Person Who was Notified: DARRYL Consulting Physician: CARLOS Phone Counselor Specialty: Ordering Physician: RAUL
--- NOTE | 2023-11-16 07:00 | NUR ---
CLOSING NOTE: PATIENT IN STABLE CONDITION. BEDSIDE REPORT GIVEN TO ONCOMING SHIFT.
--- NOTE | 2023-11-16 07:30 | NUR ---
OPENING NOTES: CARE ENDORSED FROM NOC SHIFT NURSE, PATIENT IN BED RESTING NEEDS MET, NO ACUTE DISTRESS NOTED, INTRODUCED SELF, ADDRESSED ALL NEEDS, SAFETY INTACT, BED ALARM ON AND ACTIVE,
[2023-11-16 08:00] VITALS: BP_SYST 103; PULSE 97; RESP 18; TEMP 97.6; O2SAT 99
--- NOTE | 2023-11-16 08:29 | NUR ---
LINOLEUM PRINTER, DR GONZALEZ WAS CALLED RE: CHEST PAIN, 7 OUT OF 10. SPOKE TO KALEE.
--- NOTE | 2023-11-16 08:30 | NUR ---
MD CALLED DR. GONZALEZ CARDIO FOR PATIENT C/O CHEST PAIN 09/22 UPPER GASTRIC PAIN RADIATING TO BACK , NEW ORDERS GIVEN AND CARRIED OUT.
[2023-11-16] MEDS ORDERED: NALOXONE HCL 0.4 MG/ML AMP (NARCAN) IVP PRN (08:45)
[2023-11-16] MEDS: MORPHINE 2 MG/ML INJ. SYRINGE IVP PRN (08:53)
[2023-11-16] MEDS ORDERED: ASPIRIN 81 MG TABLET(ECOTRIN) PO SCH (09:00)
[2023-11-16] MEDS ORDERED: SACUBITRIL/VALSARTAN 24 MG-26 MG 1 TABLET PO SCH (09:00)
[2023-11-16] MEDS ORDERED: CARVEDILOL 12.5 MG TABLET (COREG) PO SCH (09:00)
[2023-11-16] MEDS ORDERED: ASPIRIN 81 MG TAB.CHEW PO SCH (09:00)
[2023-11-16] MEDS: METOPROLOL TARTRATE 50 MG TABLET PO SCH (09:00)
--- NOTE | 2023-11-16 09:06 | NUR ---
ROUNDING CARDIOLOGY AT BEDSIDE WITH PATIENT
[2023-11-16 09:23] LABS: ALBUMIN 3.2 g/dL (3.4-4.8); CALCIUM 8.8 mg/dL (8.4-11.0); POTASSIUM 3.8 mmol/L (3.5-5.1); THYROID STIMULATING HORMONE 8.15 uIu/mL (0.34-4.82); TOTAL BILIRUBIN 0.5 mg/dL (0.0-1.0); TOTAL PROTEIN, SERUM 6.6 g/dL (6.4-8.3)
[2023-11-16 11:00] VITALS: BP_SYST 132; PULSE 63; RESP 15; TEMP 98.3; O2SAT 97
[2023-11-16] MEDS: GABAPENTIN 300 MG CAPSULE PO SCH (12:03)
[2023-11-16] MEDS: ENOXAPARIN SODIUM 40 MG/0.4 ML SYRINGE SUBCUT ONE (12:03)
[2023-11-16] MEDS: ATORVASTATIN 20 MG TABLET PO SCH (12:04)
[2023-11-16] MEDS: LEVOTHYROXINE SODIUM 0.075 MG TABLET PO SCH (12:04)
[2023-11-16 15:18] LABS: INFLUENZA TYPE A Negative (NEGATIVE); INFLUENZA TYPE B NEGATIVE (NEGATIVE)
[2023-11-16 16:04] VITALS: BP_SYST 106; PULSE 86; RESP 15; TEMP 98.2; O2SAT 96
--- NOTE | 2023-11-16 19:00 | NUR ---
CLOSING NOTE: REPORT GIVEN TO NOC SHIFT NURSE, INTRODUCTION MADE TO PATIENT, NEEDS ADDRESSED AT THAT TIME, IN BED RESTING NEEDS MET SAFETY INTACT,
--- NOTE | 2023-11-16 19:30 | NUR ---
OPENING NOTE Pt is awake lying in bed. No s/s of respiratory distress on 3L nasal cannula, SPO2 96%. Breathing even and unlabored. No c/o pain. Bed locked in lowest position, bed alarm on, call light within reach
[2023-11-16 20:00] VITALS: BP_SYST 126; PULSE 90; RESP 18; TEMP 98; O2SAT 96
--- NOTE | 2023-11-17 00:15 | NUR ---
ROUNDS Pt lying in bed, eyes closed. Breathing even and unlabored. No s/s of distress. VSS. Morphine for CP effective. Bed locked in lowest position, bed alarm on, call light within reach
[2023-11-17 00:30] VITALS: BP_SYST 128; PULSE 70; RESP 18; TEMP 98.3; O2SAT 98
--- NOTE | 2023-11-17 07:02 | NUR ---
CLOSING NOTE Pt lying in bed, eyes closed. No s/s of respiratory distress on 3L nasal cannula. Breathing even and unlabored. No c/o pain. Pt slept well and remained stable throughout the night. All needs met. Bed locked in lowest position, bed alarm on, call light within reach
[2023-11-17 07:51] VITALS: PULSE 85; RESP 16; TEMP 97.3; O2SAT 98
[2023-11-17 08:15] LABS: BASOPHILS % (AUTO) 0.4 % (0.0-2.0); EOSINOPHILS # (AUTO) 0.4 K/uL (0.0-0.4); EOSINOPHILS % (AUTO) 4.8 % (0.0-4.0); HEMOGLOBIN 15.4 g/dL (14.0-18.0); LYMPHOCYTES # (AUTO) 1.6 K/uL (1.0-5.5); LYMPHOCYTES % (AUTO) 21.4 % (20.5-51.5); MEAN CORPUSCULAR HEMOGLOBIN 33 pg (27-31); MEAN CORPUSCULAR HGB CONC 34 % (32-36); MEAN CORPUSCULAR VOLUME 97 fL (79.0-98.0); MONOCYTES # (AUTO) 0.8 K/uL (0.0-1.0); MONOCYTES % (AUTO) 10.7 % (1.7-9.3); NEUTROPHILS # (AUTO) 4.7 K/uL (1.8-7.7); NEUTROPHILS % (AUTO) 62.7 % (40.0-70.0); PLATELET COUNT (AUTO) 307 K/uL (130-430); RED BLOOD CELL COUNT(AUTO) 4.66 MIL/uL (4.2-6.2); WHITE BLOOD COUNT (AUTO) 7.6 K/uL (4.8-10.8)
[2023-11-17] MEDS: ASPIRIN 81 MG TAB.CHEW PO SCH (08:23)
[2023-11-17] MEDS: LOSARTAN POTASSIUM 50 MG TABLET (COZAAR) PO SCH (08:24)
[2023-11-17] MEDS: amLODIPine BESYLATE 5 MG TABLET PO SCH (08:26)
[2023-11-17] MEDS: ENOXAPARIN SODIUM 40 MG/0.4 ML SYRINGE SUBCUT SCH (08:26)
[2023-11-17 09:04] LABS: ALBUMIN 3.3 g/dL (3.4-4.8); CALCIUM 8.9 mg/dL (8.4-11.0); CREATININE 1.05 mg/dL (0.55-1.30); FREE T4 (FREE THYROXINE) 0.8 ng/dl (0.8-1.5); THYROID STIMULATING HORMONE 9.14 uIu/mL (0.36-3.74); TOTAL BILIRUBIN 0.6 mg/dL (0.0-1.0); TOTAL PROTEIN, SERUM 7.2 g/dL (6.4-8.3)
[2023-11-17 12:12] VITALS: BP_SYST 115; PULSE 77; RESP 16; TEMP 98.9; O2SAT 95
--- NOTE | 2023-11-17 17:02 | NUR ---
PT VITALS HU IS WNL. NO SOB, STILL C/O CHEST PAIN. GIVEN 3X MORPHINE WITH GOOD RELIEF. DR CARTER WAS HERE AND SEEN PT.
[2023-11-17 17:55] VITALS: BP_SYST 112; PULSE 78; RESP 16; TEMP 98.6; O2SAT 95
[2023-11-17 18:32] VITALS: BP_SYST 135; PULSE 86; RESP 16; TEMP 98.4; O2SAT 98
--- NOTE | 2023-11-17 19:47 | NUR ---
Patient escorted out of room and into parking lot as patient is discharging home. Patient driven home safely by family member. No complaints of pain or shortness of breath. All belongings with patient. all needs met at this time.
[2023-11-17] MEDS ORDERED: LOSARTAN POTASSIUM 50 MG TABLET (COZAAR) PO SCH (21:00)
== END 2023-11-17 19:40 | disposition home or self-care (01) | DRG 313 ==
LOC: SED 23:18 → STU 11-16 02:42
PROVIDERS: ADMIT Internal Medicine; ATTEND Internal Medicine
DX: R07.89 Other chest pain (principal); Z68.41 Body mass index [BMI] 40.0-44.9, adult; I42.9 Cardiomyopathy, unspecified; I11.0 Hypertensive heart disease with heart failure; I44.7 Left bundle-branch block, unspecified; Z20.822 Contact with and (suspected) exposure to COVID-19; E03.9 Hypothyroidism, unspecified; I50.9 Heart failure, unspecified; G89.4 Chronic pain syndrome; E78.5 Hyperlipidemia, unspecified; E66.01 Morbid (severe) obesity due to excess calories; E11.9 Type 2 diabetes mellitus without complications; Z87.891 Personal history of nicotine dependence; Z79.899 Other long term (current) drug therapy; Z79.82 Long term (current) use of aspirin
CPT/HCPCS: 36415; 71045; 80048; 80053; 80061; 80076; 80307; 81000; 81001; 81015; 82150; 82948; 83037; 83690; 83735; 83880; 84439; 84443; 84484; 85025; 85379; 85610; 85730; 93005; 93306; 93970; 99285; G0378; J1650; J1885; J2060; J2270; J2405; J2765